=== PATIENT | male | born 1950 | race Caucasian/White ===

== ENCOUNTER → 2018-04-13 | Outpatient (CLI) | payer OTHER ==
--- NOTE | 2018-04-13 14:02 | RAD ---
MRI of the lumbar spine without contrast 04/13/2018 CLINICAL HISTORY: Chronic low back pain. TECHNIQUE: Unenhanced T1-weighted and T2-weighted sagittal and axial and inversion recovery sagittal images of the lumbar spine were obtained. FINDINGS: Very mild S-shaped curvature of the thoracolumbar spine is seen. Degenerative signal changes are seen involving all of the disks of the lumbar spine. Loss of height of the L4-5 discs is noted. Degenerative signal changes are seen within the marrow surrounding this disc. Several hemangiomas are seen scattered throughout the lower thoracic and lumbosacral vertebral bodies. These measure 3 mm to 2 cm in size. The conus medullaris is normal morphology, position, and signal characteristics. The L1-2 disc space is within normal limits. At the L2-3 disc space there is a mild generalized disc bulge. Degenerative changes are seen involving the facet joints bilaterally. There is mild ligamentum flavum hypertrophy bilaterally. These findings do not result in significant central spinal canal stenosis. No neural foraminal stenosis is seen. At the L3-4 disc space there is a mild generalized disc bulge. Degenerative changes are seen involving the facet joints bilaterally. There is moderate ligamentum flavum hypertrophy bilaterally. These findings when combined do not result in significant central spinal canal or neural foraminal stenosis. At the L4-5 disc space there is a mild to moderate generalized disc bulge which is eccentric to the right. Degenerative changes are seen involving the facet joints bilaterally. There is mild to moderate ligamentum flavum hypertrophy bilaterally. These findings when combined do not result in significant central spinal canal stenosis. Mild right neural foraminal stenosis is seen. The left neural foramen is patent. At the L5-S1 disc space there is a mild generalized disc bulge. This is eccentric to the left. Degenerative changes are seen involving the facet joints bilaterally. There is mild ligamentum flavum hypertrophy bilaterally. These findings when combined do not result in significant central spinal canal stenosis. Mild to moderate left neural foraminal stenosis is seen. The right neural foramen is patent. IMPRESSION: The changes of degenerative disc disease are seen involving the lumbar spine. These findings do not result in significant central spinal canal stenosis at any level. Mild right neural foraminal stenosis is seen at L4-5. Mild to moderate left neural foraminal stenosis is seen at L5-S1. Electronically signed by: Amadou Rashid MD (04/13/2018 1:59 PM) [id number]
== END | disposition home or self-care (01) ==
LOC: MRI 10:51
PROVIDERS: ATTEND Nurse Practitioner Family
DX: M51.36 Other intervertebral disc degeneration, lumbar region (principal); M48.07 Spinal stenosis, lumbosacral region; M48.061 Spinal stenosis, lumbar region without neurogenic claudication; D18.09 Hemangioma of other sites; G89.29 Other chronic pain
CPT/HCPCS: 72148